=== PATIENT | female | born 1980 | race African-American/Black ===

== ENCOUNTER 2017-11-19 00:41 | Inpatient (IN) | payer OTHER ==
[2017-11-19] VITALS (7 sets, daily range): BP systolic 90–115; BP diastolic 48–60
[~2017-11-19] VITALS: Ht 165.1 cm; Wt 93.9 kg
[2017-11-19] MEDS ORDERED: PNV1TABL50 MT (00:54)
[2017-11-19] MEDS ORDERED: DEXT 5%/LR + PITOCIN 20UNITS/L 1,000 ML IV SCH ×2 (00:58→03:41)
[2017-11-19] MEDS ORDERED: DEXT 5%/LR + PITOCIN 20UNITS/L 1,000 ML IV ONE (01:07)
[2017-11-19 02:59] LABS: PARTIAL THROMBOPLASTIN TIME 29.6 sec (23.4-31.0); PROTHROMBIN TIME 10.2 sec (9.1-11.1)
[2017-11-19] MEDS ORDERED: LIDOCAINE HCL 1% 20ML VIAL (Pyxis) INJ ONE (03:02)
[2017-11-19] MEDS ORDERED: LIDOCAINE HCL/PF 1% 10 MG/ML 30ML VIAL INFIL NR (03:30)
[2017-11-19] MEDS ORDERED: METHYLERGONOVINE MALEATE 0.2 MG/ML IM PRN (03:45)
[2017-11-19] MEDS ORDERED: IBUPROFEN 400MG TABLET PO PRN (03:45)
[2017-11-19] MEDS ORDERED: LANOLIN OINT 0.25 GM TUBE TOP PRN (03:45)
[2017-11-19] MEDS ORDERED: RHO(D) IMMUNE GLOBULIN 300 MCG/SYR IM PRN (03:45)
[2017-11-19] MEDS ORDERED: LIDOCAINE HCL 1% 20ML VIAL (Pyxis) INJ INFIL NR (04:15)
[2017-11-19] MEDS: IBUPROFEN 800MG TABLET PO PRN ×2 (06:13→16:47)
[2017-11-19] MEDS: PRENATAL VIT/FE FUMARATE/FA TABLET PO SCH (08:57)
[2017-11-19 09:40] LABS: HEPATITIS B SURFACE ANTIGEN NEGATIVE; RUBELLA IGG 473.2 IU/mL (4.99-10)
[2017-11-19 11:35] LABS: CLARITY URINE CLEAR (CLEAR); COLOR URINE YELLOW (YELLOW); KETONES URINE NEGATIVE (NEGATIVE); LEUKOCYTE ESTERASE URINE 1+ (NEGATIVE); NITRITE URINE NEGATIVE (NEGATIVE); OCCULT BLOOD URINE 3+ (NEGATIVE); PROTEIN URINE TRACE (NEGATIVE); SPECIFIC GRAVITY URINE 1.011 (1.005-1.030)
[2017-11-19 11:54] LABS: *AMPHETAMINES SCREEN URINE NEGATIVE (NEGATIVE); *BARBITURATES SCREEN URINE NEGATIVE (NEGATIVE); *BENZODIAZEPINES SCREEN URINE NEGATIVE (NEGATIVE); *COCAINE SCREEN URINE NEGATIVE (NEGATIVE); METHADONE URINE SCREEN NEGATIVE (NEGATIVE); OPIATES URINE SCREEN NEGATIVE (NEGATIVE); PHENCYCLIDINE URINE SCREEN NEGATIVE (NEGATIVE)
[2017-11-19 11:55] LABS: CANNABINOID URINE SCREEN NEGATIVE (NEGATIVE)
[2017-11-20] MEDS: IBUPROFEN 800MG TABLET PO PRN ×2 (03:15→14:50)
[2017-11-20 06:01] VITALS: BP 90/51
[2017-11-20 07:17] LABS: BASOPHILS % 0.4 % (0.0-2.0); EOSINOPHILS % 2.7 % (0.0-5.0); HEMATOCRIT. 29.9 % (36.0-48.0); HEMOGLOBIN. 10.2 g/dL (12.0-16.0); LYMPHOCYTES % 19.7 % (20.0-50.0); MEAN CORPUSCULAR HEMOGLOBIN 29.7 pg (28.0-32.0); MEAN CORPUSCULAR VOLUME 87.2 fL (81.0-99.0); MEAN PLATELET VOLUME 8.6 fl (7.4-10.4); MONOCYTES % 10.1 % (2.0-8.0); NEUTROPHILS % 67.1 % (40.0-76.0); PLATELET 190 x1000/uL (130-400); RED BLOOD CELL COUNT 3.43 mill/uL (4.2-5.4); RED CELL DISTRIBUTION WIDTH 14.8 % (11.6-14.6)
[2017-11-20 08:00] VITALS: BP 104/64
[2017-11-20] MEDS: PRENATAL VIT/FE FUMARATE/FA TABLET PO SCH (09:26)
[2017-11-20 14:50] VITALS: BP 104/64
== END 2017-11-20 17:52 | disposition home or self-care (01) | DRG 775 ==
LOC: OBSVTOIN 00:41 → L&D 00:41 → 7EST PP/OB 04:15
PROVIDERS: ADMIT Obstetrics & Gynecology; ATTEND Obstetrics & Gynecology
PROC: 10E0XZZ Delivery of Products of Conception, External Approach (ICD-10-PCS; 2017-11-19)
PROC: 0KQM0ZZ Repair Perineum Muscle, Open Approach (ICD-10-PCS; principal; 2017-11-19 00:08)
DX: O48.0 Post-term pregnancy (principal); Z37.0 Single live birth; Z3A.40 40 weeks gestation of pregnancy; O70.1 Second degree perineal laceration during delivery
CPT/HCPCS: 36415; 80305; 81003; 85025; 85610; 85730; 86592; 86703; 86762; 86850; 86900; 87340; 99281; G0378; J2590; J3490